=== PATIENT | female | born 1960 | race Caucasian/White ===

== ENCOUNTER → 2022-01-08 | Outpatient (CLI) | payer BC | LOC: KOH-I 13:47 | DX: M51.36 Other intervertebral disc degeneration, lumbar region (principal); M48.061 Spinal stenosis, lumbar region without neurogenic claudication; M47.816 Spondylosis without myelopathy or radiculopathy, lumbar region; M51.27 Other intervertebral disc displacement, lumbosacral region | CPT/HCPCS: 72148 ==

== ENCOUNTER → 2022-03-14 | Outpatient (CLI) | payer BC ==
[~2022-03-14] MED LIST: ADIPEX-P37.5 MG PO; ALLOPURINOL300 MG PO; ASPIRIN325 MG PO; BENTYL 20MG TAB20 MG PO; BUSPAR 10MG10 MG PO; COLCHICINE0.6 MG PO; CRESTOR20 MG PO; CYMBALTA60 MG PO; HYDRALAZINE HCL50 MG PO; HYDROCODON-ACE1 EAC6 PO; JANUMET XR 50-1 EACH PO; MECLIZINE HCL25 MG PO; MELOXICAM15 MG PO; NEURONTIN600 MG PO; NEXIUM40 MG PO; PERCOCET 10-321 EACH PO; TIZANIDINE HCL4 MG PO; TOPROL XL50 MG PO; TRICOR145 MG PO; VITAMIN D21250 MCG PO
[2022-03-14 12:15] LABS: HEMOGLOBIN 12.2 gm/dl (12.3-15.3); RED BLOOD COUNT 3.81 M/UL (4.00-5.10); WHITE BLOOD COUNT 7.6 K/UL (4.5-11.0)
== END ==
LOC: EDSTATUS 10:00 → OPSV2 10:00
PROVIDERS: Orthopaedic Surgery
DX: Z01.818 Encounter for other preprocedural examination (principal); M16.11 Unilateral primary osteoarthritis, right hip
CPT/HCPCS: 80048; 83036; 85027; 93005

== ENCOUNTER → 2022-03-26 | Outpatient (CLI) | payer BC ==
[~2022-03-26] MED LIST changes: +CYCLOBENZAPRINE10 MG PO; +ELIQUIS2.5 MG PO; +ONDANSETRON ODT4 MG PO; +ONE-A-DAY WOME1 EAC5 PO; +OXYCODONE-ACET1 EACH PO
== END ==
LOC: LAB 09:44
PROVIDERS: Orthopaedic Surgery
DX: Z01.812 Encounter for preprocedural laboratory examination (principal)
CPT/HCPCS: 36415; 80048; 86850; 86900; 86901

== ENCOUNTER 2022-03-27 05:48 | Day surgery (SDC) | payer BC ==
[~2022-03-27] VITALS: Ht 157.5 cm; Wt 77.6 kg
[~2022-03-27 05:48] MED LIST changes: -CYCLOBENZAPRINE10 MG PO; -ELIQUIS2.5 MG PO; -ONDANSETRON ODT4 MG PO; -ONE-A-DAY WOME1 EAC5 PO; -OXYCODONE-ACET1 EACH PO
[2022-03-27] MEDS ORDERED: ELIQUIS2.5 MG PO (07:54)
[2022-03-27] MEDS ORDERED: CYCLOBENZAPRINE10 MG PO (07:55)
[2022-03-27] MEDS ORDERED: ONDANSETRON ODT4 MG PO (07:57)
[2022-03-27] MEDS ORDERED: OXYCODONE-ACET1 EACH PO (07:57)
[2022-03-27] MEDS ORDERED: ONE-A-DAY WOME1 EAC5 PO (16:26)
[2022-03-28 06:38] LABS: HEMOGLOBIN 9.8 gm/dl (12.3-15.3); RED BLOOD COUNT 3.06 M/UL (4.00-5.10); WHITE BLOOD COUNT 10.1 K/UL (4.5-11.0)
== END 2022-03-28 14:13 | disposition home health service (06) ==
LOC: OR 05:48 → M/S 11:15 → OR 03-28 14:13
PROVIDERS: Orthopaedic Surgery
DX: M16.11 Unilateral primary osteoarthritis, right hip (principal); I10 Essential (primary) hypertension; E78.5 Hyperlipidemia, unspecified; E11.9 Type 2 diabetes mellitus without complications; M10.9 Gout, unspecified; K57.30 Diverticulosis of large intestine without perforation or abscess without bleeding; K21.9 Gastro-esophageal reflux disease without esophagitis; F17.210 Nicotine dependence, cigarettes, uncomplicated; Z79.82 Long term (current) use of aspirin; Z79.84 Long term (current) use of oral hypoglycemic drugs; Z79.899 Other long term (current) drug therapy
CPT/HCPCS: 73501; 73502; 76000; 80048; 82962; 85027; 97110-GP-CQ; 97116-GP-CQ; 97162; 97166; 97530; 97535; C1776; J0690; J1170; J1885; J2250; J2270; J2274; J2370; J2405; J2704; J3010; J3370; J7050